=== PATIENT | female | born 2000 | race Two or more races ===

== ENCOUNTER 2021-11-01 14:00 | Emergency (ER) | payer OTHER ==
[~2021-11-01] VITALS: Ht 175.3 cm; Wt 54.0 kg
[2021-11-01 14:07] VITALS: BP 103/65
== END 2021-11-01 17:22 | disposition home or self-care (01) ==
LOC: ER 14:01
DX: S93.402A Sprain of unspecified ligament of left ankle, initial encounter (principal); M25.572 Pain in left ankle and joints of left foot; X58.XXXA Exposure to other specified factors, initial encounter; Y93.89 Activity, other specified; Y92.89 Other specified places as the place of occurrence of the external cause; Y99.8 Other external cause status
CPT/HCPCS: 73564; 73610; 99284; L4360